=== PATIENT | female | born 1970 | race Caucasian/White ===

== ENCOUNTER 2022-12-31 08:22 | Outpatient (CLI) | payer OTHER, SELFPAY ==
--- NOTE | ~2022-12-31 | DEXA_ITS ---
Bone Density Report Name: PORTIA WOLFF Age: 52 Sex: Female Ethnicity: White Date of : 1970 Indication: postmenopausal; screening for osteoporosis; hysterectomy; Referring Provider: Aditi Honeycutt Study: Bone densitometry was performed. Exam Date: December 31, 2022 Accession number: [id number] Bone Density: Region BMD T-score Z-score Classification AP Spine(L1-L4) 1.199 1.4 2.2 Normal Femoral Neck (Left) 0.784 -0.6 0.2 Normal Total Hip (Left) 0.854 -0.7 -0.2 Normal Femoral Neck (Right) 0.758 -0.8 0.0 Normal Total Hip (Right) 0.908 -0.3 0.2 Normal Femoral Neck Mean 0.771 -0.7 0.1 Normal Total Hip Mean 0.881 -0.5 0.0 Normal World Health Organization criteria for BMD impression classify patients as: Normal (T-score at or above -1.0), Osteopenia (T-score between -1.0 and -2.5), or Osteoporosis (T-score at or below -2.5). 10-year Fracture Risk: FRAX not reported because: All T-scores for Spine Total, Hip Total, Femoral Neck at or above -1.0 Clinical Information Provided by Patient: Has used the following medications: HRT (i.e. estrogen/hormone therapy), b-12 Has the following medical conditions: Hysterectomy, graves disease Patient maximum height was 67 Menopause Age: 52 Drinks caffeinated beverages Onset of menses at age 14 Number of children 2 Impression: The patient has normal bone mass. Discussion: BONE DENSITY IS ABOVE THE MINIMUM DESIRABLE LEVEL AT ALL SKELETAL SITES TESTED. This patient?s bone mineral density is above the minimum desirable level (T-score -1.0 or better) at all sites measured. The patient should follow a healthful lifestyle (good nutrition with adequate calcium and vitamin D, and appropriate weight-bearing exercise). Follow-Up: Consider repeating this study in 5 years or sooner if there is some new clinical indication. Reported by: Dr. Antony Jones on 12/31/2022 8:52:00 AM. Reviewed, dictated and finalized at location [facility]
== END 2022-12-31 08:23 | disposition home or self-care (01) ==
PROVIDERS: PCP Internal Medicine; Visit Provider Internal Medicine
DX: Z78.0 Asymptomatic menopausal state (principal)
CPT/HCPCS: 77080

== ENCOUNTER 2023-01-13 01:14 | Day surgery (SDC) | payer OTHER, SELFPAY ==
[2023-01-04 08:34] VITALS: BMI 26.9
[2023-01-13 07:07] VITALS: BP 110/71; PULSE 54; RESP 16; TEMP 35.9; O2SAT 100
[2023-01-13] MEDS: LACTATED RINGERS 1,000 ML 150 ML IV CONT (07:10)
--- NOTE | 2023-01-13 07:58 | P.PNAN_ITS ---
Anes - Initial Pre Proc Eval Procedure: Operation Date: 01/13/23 08:30 Proposed Procedures p Screening Colonoscopy - Tony Hernandez DO Date/Time: 01/13/23 07:58 Surgeon: Tony Hernandez DO Pre Op Diagnosis: neoplasm screening Patient Data Age: 52 Gender: F Height: 1.7 m Weight: 77.4 kg Last Vital Signs Temp 96.6 F L 01/13/23 07:07 Pulse 54 L 01/13/23 07:07 Resp 16 01/13/23 07:07 BP 110/71 01/13/23 07:07 Pulse Ox 100 01/13/23 07:07 O2 Del Method Room Air 01/13/23 07:07 Allergies Allergy/AdvReac Type Severity Reaction Status Date / Time No Known Allergies Allergy Verified 01/13/23 07:06 Home Medications Medication Instructions Recorded Confirmed Type Baby Aspirin 81 mg PO DAILY 01/04/23 01/13/23 History Colace 1 tab-cap PO PRN PRN Constipation 01/04/23 01/13/23 History escitalopram oxalate 10 mg tablet 10 mg PO DAILY 01/04/23 01/13/23 History (Lexapro) losartan-hydrochlorothiazide 25 mg PO DAILY 01/04/23 01/13/23 History vitamin B complex 1 tab-cap PO DAILY 01/04/23 01/13/23 History Patient hx anesthesia problems: none Family hx anesthesia problems: none Results Review: All pre-operative results and documents have been reviewed as part of the pre- operative evaluation. PMFSH Social History Social History Smoking status: Never smoker Alcohol intake: never Substance use: never Substance use type: does not use Living arrangements: with family Spiritual care concerns: No Anes - Eval Final PreProcedure Day of Procedure 01/13/23 07:58 Patient weight: normal Heart: regular rate and rhythm Lungs: clear to auscultation Airway: Mallampati scale class II Neurological: alert and oriented Last oral intake: >/= 8 hours ASA classification: II Emergent: no Anesthetic plan: proceed Anesthesia type and monitoring: general GIVS and standard monitoring Results Review: All pre-operative results and documents have been reviewed as part of the pre- operative evaluation. Informed Consent: The patient's anesthetic plan and its attendant risks and benefits were discusse d with the patient/family/POA. Questions were solicited and answers provided to the satisfaction of the patient/family/POA.
--- NOTE | 2023-01-13 08:33 | PM.IMHP ---
H&P: HPI History of Present Illness Date/Time: 01/13/23 08:33 Chief Complaint: screening for colorectal cancer Narrative: this is a 52-year-old woman who presents for colonoscopy. She has never had a colonoscopy before. She denies any hematochezia or melena. She denies any first-degree relatives with colon cancer. She does have occasional constipation and occasional him problems. Review of Systems Review of Systems: All systems reviewed & are unremarkable except as noted in HPI and below Constitutional: Constitutional: Denies chills, Denies fever(s), Denies headache(s) and Denies weight loss Eyes: Eyes: Denies change in vision ENT: Denies dizziness, Denies headache(s), Denies neck mass and Denies throat swelling Cardiovascular: Cardiovascular: Denies chest pain, Denies lightheadedness and Denies dyspnea Respiratory: Respiratory: Denies cough, Denies dyspnea and Denies wheezing Gastrointestinal: Gastrointestinal: Denies abdominal pain, Denies change in bowel habits, Denies nausea and Denies vomiting Genitourinary: Genitourinary: Denies hematuria and Denies dysuria Musculoskeletal: Musculoskeletal: Reports as per HPI Integumentary/Breasts: Skin/Breast: Reports as per HPI Neurologic: Denies dizziness and Denies headache(s) Allergic/Immunologic: Allergic/Immunologic: Denies throat swelling and Denies wheezing PMFSH Social History Social History Smoking status: Never smoker Alcohol intake: never Substance use: never Substance use type: does not use Living arrangements: with family Spiritual care concerns: No Meds Home Medications and Allergies Home Medications Medication Instructions Recorded Confirmed Type Baby Aspirin 81 mg PO DAILY 01/04/23 01/13/23 History Colace 1 tab-cap PO PRN PRN Constipation 01/04/23 01/13/23 History escitalopram oxalate 10 mg tablet 10 mg PO DAILY 01/04/23 01/13/23 History (Lexapro) losartan-hydrochlorothiazide 25 mg PO DAILY 01/04/23 01/13/23 History vitamin B complex 1 tab-cap PO DAILY 01/04/23 01/13/23 History Allergies Allergy/AdvReac Type Severity Reaction Status Date / Time No Known Allergies Allergy Verified 01/13/23 07:06 Vital Signs Vital Signs - 24 hr 01/13/23 07:07 Temperature 35.9 C L Pulse Rate 54 L Respiratory Rate 16 Blood Pressure 110/71 Pulse Oximetry 100 Oxygen Delivery Room Air Exam Const: General: no acute distress and alert Orientation/consciousness: patient oriented x3 HENMT: Head: normocephalic and atraumatic Ears: hearing grossly normal bilaterally Face/Nose/Sinus: Normal nares present Mouth: Yes Normal oral and palatal mucosa present Eyes: Periorbital: periorbital findings normal Sclera: sclerae normal EOM: EOMs intact bilaterally Neck: Neck: normal visual inspection, no lymphadenopathy and trachea midline Chest: Chest palpation & inspection: normal inspection of the chest Resp: Effort & Inspection: normal respiratory effort Auscultation: clear to auscultation bilaterally Cardio: Jugular venous distension: no JVD Rate: regular rate Rhythm: regular rhythm Heart sounds: S1 normal heart sound present and S2 normal heart sound present Peripheral pulses: Peripheral pulses 2+ throughout GI: Inspection: normal to inspection GI Palp: Yes Soft to palpation, No Tenderness to palpation present (GI), No Guarding due to palpation present (GI) and No Rebound tenderness present Percussion: Yes normal to percussion Auscultation: normal bowel sounds : General: Yes no CVA tenderness Back/Spine/Pelvis: Back: no CVA tenderness Neuro: General: patient oriented x3, no focal motor deficits and CN's II-XI intact bilaterally Cognition (Neuro): normal cognition Speech: normal speech Motor exam (neuro): 5/5 motor strength present throughout Extrem: General: capillary refill normal and no clubbing, cyanosis or edema Assessment and Plan Assessment and plan (1) Screening for colorectal cancer: Code
[2023-01-13 09:13] VITALS: BP 103/61; PULSE 54; RESP 25; O2SAT 100
[2023-01-13 09:23] VITALS: BP 104/62; PULSE 59; RESP 18; O2SAT 100
[2023-01-13 09:33] VITALS: BP 103/72; PULSE 53; RESP 23; O2SAT 100
== END 2023-01-13 09:39 | disposition home or self-care (01) ==
PROVIDERS: PCP Internal Medicine; Visit Provider Surgery
PROC: 0DJD8ZZ Inspection of Lower Intestinal Tract, Via Natural or Artificial Opening Endoscopic (ICD-10-PCS; CPT 45378; principal; 2023-01-13 08:30)
DX: Z12.11 Encounter for screening for malignant neoplasm of colon (principal); D12.0 Benign neoplasm of cecum; K57.30 Diverticulosis of large intestine without perforation or abscess without bleeding; K64.8 Other hemorrhoids; Z79.82 Long term (current) use of aspirin
CPT/HCPCS: 45380; 88305; J2704; J7120

== ENCOUNTER 2024-06-27 06:24 | Emergency (ER) | payer OTHER, SELFPAY ==
--- NOTE | ~2024-06-27 | CT_ITS ---
Non-contrast CT scan of the Abdomen and Pelvis Clinical indication: Flank pain Technique: 2.5 mm axial scans were obtained through the abdomen and pelvis without intravenous or or al contrast. Dose reduction technique was used on this scan by utilizing automated exposure control a nd iterative reconstruction technique. The dose-length product (DLP) was 505.13 mGy-cm. Findings: Images through the lung bases reveal no abnormalities. There is no evidence of renal or ureteral calculi. The kidneys and the ureters are nondilated. The liver, spleen, pancreas, gallbladder, and adrenals appear normal. There is no aortic aneurysm. There is no evidence of bowel obstruction. Images through the pelvis were performed. There is no evidence of ascites or lymphadenopathy. Urinary bladder unremarkable. No pelvic mass. Impression: No significant abnormality seen. Reviewed, dictated and finalized at [facility]. Impression: No significant abnormality seen.
[2024-06-27 06:30] VITALS: BP 142/86; PULSE 73; RESP 18; TEMP 36.9; O2SAT 98
--- NOTE | 2024-06-27 06:34 | ED.ABDPAIN ---
HPI - Abdominal Pain General Chief Complaint: Abdominal Pain <Tony Ford MD - Last Filed: 06/27/24 06:49> Stated Complaint: Abdominal Pain <Tony Ford MD - Last Filed: 06/27/24 06:49> Time Seen by Provider: 06/27/24 06:34 <Tony Ford MD - Last Filed: 06/27/24 06:49> Source: patient <Tony Ford MD - Last Filed: 06/27/24 06:49> Mode of arrival: ambulatory <Tony Ford MD - Last Filed: 06/27/24 06:49> Limitations: no limitations <Tony Ford MD - Last Filed: 06/27/24 06:49> History of Present Illness HPI narrative: 54 year old female presents to the Emergency Department complaining of abdominal pain. Patient indicates RUQ. Has had over past week, but worse since last night. Pain to right upper flank. Has had nausea without vomiting, diarrhea or constipation. Has felt like a lot of gas. Denies urinary tract symptoms. No prior history of. <Tony Ford MD - Last Filed: 06/27/24 06:49> MD elicited complaint: abdominal pain <Tony Ford MD - Last Filed: 06/27/24 06:49> Pertinent past history: none <Tony Ford MD - Last Filed: 06/27/24 06:49> Onset (ago): week(s) (1 week ago, but worse since last night) <Tony Ford MD - Last Filed: 06/27/24 06:49> Pain Consistency: constant (since last night) <Tony Ford MD - Last Filed: 06/27/24 06:49> Location: RUQ and R flank <MD Ga Conte Last Filed: 06/27/24 06:49> Severity: moderate <Tony Ford MD - Last Filed: 06/27/24 06:49> Radiation: R flank <MD Ga Conte Last Filed: 06/27/24 06:49> Exacerbating factors: nothing <MD Ga Conte Last Filed: 06/27/24 06:49> Relieving factors: nothing <Tony Ford MD - Last Filed: 06/27/24 06:49> Associated symptoms: nausea <Tony Ford MD - Last Filed: 06/27/24 06:49> Related Data Patient : No <Tony Ford MD - Last Filed: 06/27/24 06:49> Home Medications: Home Medications Medication Instructions Recorded Confirmed Baby Aspirin 81 mg PO DAILY 01/04/23 06/27/24 losartan-hydrochlorothiazide 25 mg PO DAILY 01/04/23 06/27/24 vitamin B complex 1 tab-cap PO DAILY 01/04/23 06/27/24 Miralax 1 tbsp PO DAILY 06/27/24 06/27/24 <Tony Ford MD - Last Filed: 06/27/24 06:49> Allergies/Adverse Reactions: Allergies Allergy/AdvReac Type Severity Reaction Status Date / Time No Known Allergies Allergy Verified 01/13/23 07:06 <Tony Ford MD - Last Filed: 06/27/24 06:49> Review of Systems Review of Systems: All systems reviewed & are unremarkable except as noted in HPI and below <Tony Ford MD - Last Filed: 06/27/24 06:49> Constitutional: Constitutional: Reports as per HPI, Denies chills and Denies fever(s) <Tony Ford MD - Last Filed: 06/27/24 06:49> Eyes: Eyes: Reports as per HPI <Tony Ford MD - Last Filed: 06/27/24 06:49> ENT: Reports system reviewed and no additional complaints, except as documented <Tony Ford MD - Last Filed: 06/27/24 06:49> Cardiovascular: Cardiovascular: Reports as per HPI and Denies chest pain <Tony Ford MD - Last Filed: 06/27/24 06:49> Respiratory: Respiratory: Reports as per HPI, Denies cough and Denies dyspnea <MD Ga Conte Last Filed: 06/27/24 06:49> Gastrointestinal: Gastrointestinal: Reports as per HPI, Reports abdominal pain, Denies constipation, Denies diarrhea, Reports nausea and Denies vomiting <Tony Ford MD - Last Filed: 06/27/24 06:49> Genitourinary: Genitourinary: Reports no additional female genitourinary complaints, Denies nocturia, Denies dysuria and Reports flank pain <Tony Ford MD - Last Filed: 06/27/24 06:49> Musculoskeletal: Musculoskeletal: Reports no additional musculoskeletal complaints and Reports back pain (right upper flank) <Tony Ford MD - Last Filed:
--- NOTE | 2024-06-27 06:36 | PC.NURSE ---
patient ambulated to bathroom and back to room. Urine sample was taken to lab. Dr Ford at the bedside
[2024-06-27 06:45] LABS: Add Urine Microscopic? YES; Appearance Urine Clear (Clear); Bilirubin Urine Negative (Negative); Blood Urine 1+ (Negative); Color Urine Light Yellow (Yellow); Glucose Urine UA Negative (Negative); Ketones Urine Negative (Negative); Leukocyte Esterase Ur 2+ (Negative); Nitrate Urine Negative (Negative); Protein Urine Negative (Negative); Urobilinogen Urine 0.2 mg/dL (0.2-1.0); pH Urine 6.5 (5.0-8.0)
[2024-06-27] MEDS: ONDANSETRON INJ 4 MG/2 ML VIAL IV PUSH ×2 (06:51→08:20)
[2024-06-27] MEDS: KETOROLAC 30 MG/ML VIAL (*BKC) IV PUSH (06:51)
[2024-06-27 06:52] LABS: Basophils Absolute Auto 0.04 K/mm3 (0.00-0.10); Basophils Percent Auto 0.6 % (0.0-1.0); Eosinophils Percent Auto 3.2 % (1.0-6.0); Hematocrit 40.8 % (35.0-49.0); Immature Granulocyte Absolute 0.02 K/mm3 (0.00-0.00); Immature Granulocyte Percent A 0.3 % (0.0-0.0); Lymphocytes Percent Auto 27.3 % (18.0-42.0); Mean Corpuscular HGB Conc 34.3 g/dL (32-36); Mean Corpuscular Hemoglobin 30.2 pg (27.0-31.0); Mean Corpuscular Volume 87.9 fL (78.0-102.0); Mean Platelet Volume 11.8 fl (9.2-11.8); Monocytes Absolute Auto 0.28 K/mm3 (0.10-0.90); Monocytes Percent Auto 4.5 % (2.0-11.0); Neutrophils Absolute Auto 3.98 K/mm3 (1.70-7.20); Neutrophils Percent Auto 64.1 % (50.0-70.0); Platelet Count Result 222 K/mm3 (150-420); Red Blood Count 4.64 M/mm3 (4.20-5.40); Red Cell Distribution Width 12.2 % (11.6-14.4); White Blood Count 6.2 K/mm3 (4.8-10.8)
[2024-06-27 06:58] LABS: Bacteria Urine Trace /hpf; Squamous Epithelial Cell Urine Few /hpf (Few); Transitional Epi Cells Urine Few /hpf
[2024-06-27 07:09] LABS: Alanine Aminotransferase 26 U/L (14-59); Alkaline Phosphatase 113 U/L (46-116); Amylase 41 U/L (25-115); Anion Gap 7 mmol/L (4-12); Bilirubin,Total 0.3 mg/dL (0.00-1.00); Blood Urea Nitrogen 12 mg/dL (7-18); Calcium 8.8 mg/dL (8.5-10.1); Carbon Dioxide 29 mmol/L (21-32); Chloride 99 mmol/L (98-108); Estimated CRCL calculation 65 ml/min; Estimated Glomerular Filt Rate 60; Glucose 128 mg/dL (70-99); Lipase 24 U/L (16-77); Osmolality Calculated 281 mOsm/kg (285-295); Potassium 3.9 mmol/L (3.5-5.1); Sodium 135 mmol/L (136-145); Total Protein 7.7 g/dL (6.4-8.2)
--- NOTE | 2024-06-27 07:10 | PC.NURSE ---
Pt resting comfortably in stretcher. Waiting on lab results so that she may go to CT.
[2024-06-27 07:22] LABS: Aspartate Amino Transferase 20 U/L (15-37)
[2024-06-27 07:40] VITALS: BP 140/87; PULSE 70; RESP 16; O2SAT 97
--- NOTE | 2024-06-27 08:00 | PC.NURSE ---
Pt states that she is still having pain, 9. at bedside.
[2024-06-27] MEDS: HYDROmorphone HCL INJ (*CRX) 2 MG/ML VIAL 0.5 MG IV PUSH (08:19)
[2024-06-27 08:40] VITALS: BP 137/84; PULSE 71; RESP 16; TEMP 36.9; O2SAT 96
== END 2024-06-27 08:50 | disposition home or self-care (01) ==
PROVIDERS: Emergency Medicine; Emergency Provider Internal Medicine Critical Care Medicine; PCP Internal Medicine
DX: N30.00 Acute cystitis without hematuria (principal); R10.11 Right upper quadrant pain; Z79.82 Long term (current) use of aspirin
CPT/HCPCS: 36415; 74176; 80053; 81001; 82150; 83605; 83690; 85025; 96374; 96375; 96376; 99284; J1170; J1885; J2405